=== PATIENT | male | born 1975 | race Caucasian/White ===

== ENCOUNTER 2018-01-08 16:17 | Emergency (ER) | payer MEDICAID ==
[~2018-01-08] VITALS: Ht 167.6 cm; Wt 81.0 kg
[2018-01-08 16:20] VITALS: BP 105/71
[2018-01-08] MEDS ORDERED: KETOROLAC 30 MG/1 ML IVPush ONE (17:00)
[2018-01-08 17:03] LABS: ANION GAP 11 mmol/L (5-15); CALCIUM 7.9 mg/dL (8.5-10.1); CHLORIDE 103 mmol/L (98-107); CREATININE 0.88 mg/dL (0.7-1.3)
== END 2018-01-08 17:48 | disposition home or self-care (01) ==
LOC: ED 17:30
DX: F10.120 Alcohol abuse with intoxication, uncomplicated (principal); E10.65 Type 1 diabetes mellitus with hyperglycemia; Z79.4 Long term (current) use of insulin
CPT/HCPCS: 36415; 80048; 99283

== ENCOUNTER 2018-01-08 18:15 | Emergency (ER) | payer MEDICAID ==
[~2018-01-08] VITALS: Ht 167.6 cm; Wt 82.9 kg
[2018-01-08 18:21] VITALS: BP 138/87
== END 2018-01-08 19:54 | disposition left against medical advice (07) ==
LOC: ED 19:50
DX: E11.9 Type 2 diabetes mellitus without complications (principal)
CPT/HCPCS: 99281

== ENCOUNTER 2018-01-10 18:06 | Emergency (ER) | payer MEDICAID ==
[~2018-01-10] VITALS: Ht 170.2 cm; Wt 82.8 kg
[2018-01-10 18:08] VITALS: BP 101/67
[2018-01-10] MEDS ORDERED: INSU100C SQ-INSULIN (19:59)
[2018-01-10] MEDS ORDERED: METF500T27 PO (19:59)
[2018-01-10] MEDS ORDERED: QUET25TA5 PO (19:59)
== END 2018-01-10 18:26 | disposition left against medical advice (07) ==
LOC: ED 18:20
DX: Z53.21 Procedure and treatment not carried out due to patient leaving prior to being seen by health care provider (principal)

== ENCOUNTER 2018-01-10 19:46 | Emergency (ER) | payer MEDICAID ==
[~2018-01-10] VITALS: Ht 167.6 cm; Wt 70.0 kg
[2018-01-10] MEDS ORDERED: INSU100C SQ-INSULIN (19:59)
[2018-01-10] MEDS ORDERED: QUET25TA5 PO (19:59)
[2018-01-10] MEDS ORDERED: METF500T27 PO (19:59)
[2018-01-11 02:28] VITALS: BP 110/78
== END 2018-01-11 02:30 | disposition home or self-care (01) ==
LOC: ED 22:22
DX: F10.220 Alcohol dependence with intoxication, uncomplicated (principal); F31.9 Bipolar disorder, unspecified; G40.909 Epilepsy, unspecified, not intractable, without status epilepticus; G89.29 Other chronic pain; E11.65 Type 2 diabetes mellitus with hyperglycemia; Z59.0 Homelessness
CPT/HCPCS: 99283

== ENCOUNTER 2018-01-14 12:24 | Emergency (ER) | payer MEDICAID ==
[~2018-01-14] VITALS: Ht 175.3 cm; Wt 78.0 kg
[~2018-01-14 12:24] MED LIST: INSU100C SQ-INSULIN; METF500T27 PO; QUET25TA5 PO
[2018-01-14] MEDS ORDERED: PHEN100C PO ×2 (12:58→13:03)
[2018-01-14] MEDS ORDERED: PHENYTOIN 100 MG CAPSULE PO ONE (14:30)
[2018-01-14] MEDS ORDERED: metFORMIN 500 MG TABLET PO ONE (14:30)
[2018-01-14] MEDS ORDERED: PHENYTOIN 100 MG CAPSULE ONE (14:31)
[2018-01-14 16:33] VITALS: BP 105/67
== END 2018-01-14 16:36 | disposition home or self-care (01) ==
LOC: ED 14:10
DX: F10.120 Alcohol abuse with intoxication, uncomplicated (principal); E11.65 Type 2 diabetes mellitus with hyperglycemia; F31.9 Bipolar disorder, unspecified; G40.909 Epilepsy, unspecified, not intractable, without status epilepticus; F17.210 Nicotine dependence, cigarettes, uncomplicated
CPT/HCPCS: 99283